=== PATIENT | female | born 1975 | race Caucasian/White ===

== ENCOUNTER → 2016-12-17 | Emergency (ER) | payer SELFPAY ==
[2016-12-17 16:16] VITALS: BP 106/61; PULSE 95; TEMP 98.4; BMI 21.6
== END | disposition left against medical advice (07) ==
LOC: JER 16:03
DX: Z53.21 Procedure and treatment not carried out due to patient leaving prior to being seen by health care provider (principal)
CPT/HCPCS: 99281-25

== ENCOUNTER 2017-05-01 05:17 | Emergency (ER) | payer SELFPAY ==
--- NOTE | 2017-05-01 05:28 | PDOC ---
History of Present Illness - General Stated Complaint: ABDOMINAL PAIN History Source: Patient - History of Present Illness Travel History: No Initial Comments: 05/01/17 05:48 41-year-old female without any medical problems presents to the emergency department complaining of 5/10 burning, nonradiating intermittent discomfort 2 weeks and is associated with a sour taste in her mouth but denies nausea/ vomiting, fever/chills, chest pain, shortness of breath, flank pains, urinary symptoms. Patient states she's had similar symptoms in the past without a diagnosis. There are no alleviating or exacerbating factors. Timing/Duration: reports: intermittent Abdominal Pain Onset Location: reports: epigastric Past History - Past Medical History Allergies/Adverse Reactions: Allergies Allergy/AdvReac Type Severity Reaction Status Date / Time No Known Allergies Allergy Verified 12/17/16 16:13 Home Medications: Ambulatory Orders Dicyclomine HCl [Bentyl] 20 mg PO TID #20 tablet 06/12/15 Famotidine [Pepcid] 40 mg PO DAILY #30 tablet 06/12/15 - Surgical History Appendectomy: Yes Cholecystectomy: Yes - Suicide/Smoking/Psychosocial Hx Smoking History: Never smoked Have you smoked in the past 12 months: No Hx Alcohol Use: No Drug/Substance Use Hx: No Substance Use Type: None Review of Systems - Review of Systems Able to Perform ROS?: Yes Comments:: 05/01/17 05:48 CONSTITUTIONAL: Absent: fever, chills, diaphoresis, generalized weakness, malaise, loss of appetite HEENT: Absent: rhinorrhea, nasal congestion, throat pain, throat swelling, difficulty swallowing, mouth swelling, ear pain, eye pain, visual Changes CARDIOVASCULAR: Absent: chest pain, loss of consciousness, palpitations, irregular heart rate, peripheral edema RESPIRATORY: Absent: cough, shortness of breath, dyspnea with exertion, orthopnea, wheezing, stridor, hemoptysis GASTROINTESTINAL: +epigastric pain Absent: abdominal distension, nausea, vomiting, diarrhea, constipation, melena , hematochezia GENITOURINARY: Absent: dysuria, frequency, urgency, hesitancy, hematuria, flank pain, genital pain MUSCULOSKELETAL: Absent: myalgia, arthralgia, joint swelling SKIN: Absent: rash, itching, pallor HEMATOLOGIC/IMMUNOLOGIC: Absent: easy bleeding, easy bruising, lymphadenopathy, frequent infections ENDOCRINE: Absent: unexplained weight gain, unexplained weight loss, heat intolerance, cold intolerance NEUROLOGIC: Absent: headache, focal weakness or paresthesias, dizziness, unsteady gait, seizure, mental status changes, bladder or bowel incontinence PSYCHIATRIC: Absent: anxiety, depression, suicidal or homicidal ideation, hallucinations. Is the patient limited Samoan proficient: No *Physical Exam - Physical Exam Comments: 05/01/17 05:48 GENERAL: Well developed, well nourished. Awake and alert. No acute distress. HEENT: Normocephalic, atraumatic. PERRLA, EOMI. No conjunctival pallor. Sclera are non- icteric. Moist mucous membranes. Oropharynx is clear. NECK: Supple. Full ROM. No JVD. Carotid pulses 2+ and symmetric, without bruits. No thyromegaly. No lymphadenopathy. CARDIOVASCULAR: Regular rate and rhythm. No murmurs, rubs, or gallops. Distal pulses are 2+ and symmetric. PULMONARY: No evidence of respiratory distress. Lungs clear to auscultation bilaterally. No wheezing, rales or rhonchi. ABDOMINAL: Soft. Non-tender. Non-distended. No rebound or guarding. No organomegaly. Normoactive bowel sounds. MUSCULOSKELETAL Normal range of motion at all joints. No bony deformities or tenderness. No CVA tenderness. EXTREMITIES: No cyanosis. No clubbing. No edema. No calf tenderness. SKIN: Warm and dry. Normal capillary refill. No rashes. No jaundice. NEUROLOGICAL: Alert, awake, appropriate. Cranial nerves 2-12 intact. No deficits to light touch and temperature in face, upper extremities and lower extremities. No motor deficits in the in face, upper extremities and lower extremities. Normoreflexic in the upper and lower extremities. Normal speech. Toes are down- going bilaterally. Gait is normal without ataxia. PSYCHIATRIC: Cooperative. Good eye contact. Appropriate mood and affect.
[2017-05-01] MEDS ORDERED: FAMOTIDINE 20 MG/50 ML IVPB 50 ML IVPB ONE ×2 (05:29→06:24)
[2017-05-01] MEDS ORDERED: MAG HYDROX/AL HYDROX/SIMETH 30 ML UNIT-DOSE CUP PO ONE (05:29)
[2017-05-01] MEDS ORDERED: SODIUM CHLORIDE 1,000 ML IV SCH (05:30)
[2017-05-01 05:43] LABS: URINE APPEARANCE CLEAR; URINE BILIRUBIN NEGATIVE (NEGATIVE); URINE BLOOD NEGATIVE (NEGATIVE); URINE COLOR LTYELLOW; URINE GLUCOSE (UA) NEGATIVE (NEGATIVE); URINE KETONE NEGATIVE (NEGATIVE); URINE NITRITE NEGATIVE (NEGATIVE); URINE PROTEIN NEGATIVE (NEGATIVE); URINE UROBILINOGEN NEGATIVE mg/dL (0.2-1.0)
[2017-05-01] MEDS ORDERED: PANTOPRAZOLE 40 MG TABLET (FP) PO ONE (06:09)
[2017-05-01 06:11] VITALS: BMI 19.8
[2017-05-01] MEDS ORDERED: MAG HYDROX/AL HYDROX/SIMETH 30 ML UNIT-DOSE CUP ONE (06:12)
[2017-05-01] MEDS ORDERED: PANTOPRAZOLE 40 MG TABLET (FP) ONE (06:12)
[2017-05-01 06:27] LABS: BASOPHIL 0.8 % (0-2.0); EOSINOPHIL 3.9 % (0-4.5); MCH 30.5 pg (25.7-33.7); MCHC 34.8 g/dl (32.0-36.0); MEAN CELL VOLUME 87.6 fl (80-96); MEAN PLT VOLUME 10.2 fl (7.5-11.1); NEUTROPHILS 59.6 % (42.8-82.8); PLATELET COUNT 169 K/MM3 (134-434); RDW 13.1 % (11.6-15.6); WHITE BLOOD COUNT 6.8 K/mm3 (4.0-10.0)
[2017-05-01] MEDS ORDERED: SODIUM CHLORIDE 0.9% 1000 ML INFUS.BAG IV STA (06:37)
[2017-05-01 07:27] LABS: ALBUMIN 3.8 g/dl (3.4-5.0); ALK PHOS 77 U/L (45-117); ANION GAP 8 (8-16); BILIRUBIN,TOTAL 0.4 mg/dL (0.2-1.0); CALCIUM 8.7 mg/dL (8.5-10.1); CO2 25 mmol/L (21-32); CREATININE 0.6 mg/dL (0.55-1.02); GLUCOSE,RANDOM 94 mg/dL (74-106); SGOT/AST 22 U/L (15-37); SGPT/ALT 26 U/L (12-78); TOT PROT 7.7 g/dl (6.4-8.2)
--- NOTE | 2017-05-01 08:51 | PDOC ---
*Physical Exam - Vital Signs Last Vital Signs Temp Pulse Resp BP Pulse Ox 98.4 F 75 16 102/63 100 05/01/17 06:07 05/01/17 06:07 05/01/17 06:07 05/01/17 06:07 05/01/17 06:07 ED Treatment Course - LABORATORY CBC & Chemistry Diagram: 05/01/17 06:18 05/01/17 06:39 - ADDITIONAL ORDERS Additional order review: Laboratory Results 05/01/17 05/01/17 05/01/17 06:39 06:18 05:28 Sodium 139 Cancelled Potassium 4.0 Cancelled Chloride 106 Cancelled Carbon Dioxide 25 Cancelled Anion Gap 8 Cancelled BUN 13 Cancelled Creatinine 0.6 D Cancelled Creat Clearance w eGFR > 60 Cancelled Random Glucose 94 Cancelled Calcium 8.7 Cancelled Total Bilirubin 0.4 Cancelled AST 22 D Cancelled ALT 26 D Cancelled Alkaline Phosphatase 77 Cancelled Total Protein 7.7 Cancelled Albumin 3.8 Cancelled Total Amylase Cancelled Lipase Cancelled Urine Color Ltyellow Urine Appearance Clear Urine pH 5.0 Urine Protein Negative Urine Glucose (UA) Negative Urine Ketones Negative Urine Blood Negative Urine Nitrite Negative Urine Bilirubin Negative Urine Urobilinogen Negative Urine HCG, Qual Negative 05/01/17 06:18 RBC 4.26 MCV 87.6 MCHC 34.8 RDW 13.1 MPV 10.2 Neutrophils % 59.6 Lymphocytes % 29.1 Monocytes % 6.6 Eosinophils % 3.9 Basophils % 0.8 - Medications Given in the ED: ED Medications Discontinued Medications Generic Name Dose Route Start Last Admin Trade Name Freq PRN Reason Stop Dose Admin Al Hydroxide/Mg Hydroxide 30 ml 05/01/17 05:29 05/01/17 06:35 Mylanta Oral Suspension - PO 05/01/17 05:30 30 ml ONCE ONE Administration Famotidine/Sodium Chloride 50 mls @ 100 mls/hr 05/01/17 05:29 05/01/17 06:11 Pepcid 20 Mg Premixed Ivpb - IVPB 05/01/17 05:58 Not Given ONCE ONE Pantoprazole Sodium 40 mg 05/01/17 06:09 05/01/17 06:37 Protonix - PO 05/01/17 06:10 Not Given ONCE ONE Sodium Chloride 1,000 ml 05/01/17 06:37 05/01/17 06:41 Normal Saline - IV 05/01/17 06:38 1,000 ml NOW STA Administration Medical Decision Making - Medical Decision Making 05/01/17 08:05 Patient received in sign out from JONATHAN Jasso. Patient with complaints of upper abdominal pain that radiates to her throat. Patient had labs and was given Maalox and IV Protonix which she states did alleviate her discomfort. Patient was also given Pepcid. Patient states has been seen by Dr. Ramos the past a few years ago and had a colonoscopy but not a endoscopy. Patient recommended to follow-up with him. Rx given for Protonix along with hemorrhoidal cream which she states has long-standing history of hemorrhoids *DC/Admit/Observation/Transfer Diagnosis at time of Disposition: Dyspepsia - Discharge Dispostion Disposition: HOME Condition at time of disposition: Improved - Prescriptions Prescriptions: Phenylephrine/Shk Lv/Mo/Pet,Wh [Hemorrhoidal Ointment] 1 applic RC PRN PRN #1 tube PRN Reason: Hemorrhoids Pantoprazole Sodium [Protonix] 40 mg PO DAILY #30 tablet. - Referrals Referrals: Roni Ramos MD [Staff Physician] - - Patient Instructions Printed Discharge Instructions: DI for Gastroesophageal Reflux Disease (GERD) Additional Instructions: Please follow up with Rachel Akers. Please take Protonix daily starting tomorrow. Please read over information about GERD
[2017-05-01 09:07] VITALS: BP 108/66; PULSE 68; TEMP 98.2
[2017-05-01 11:25] LABS: URINE LEUK ESTERASE Negative (NEGATIVE)
== END 2017-05-01 09:07 | disposition home or self-care (01) ==
LOC: JER 05:17
PROC: 3E033GC Introduction of Other Therapeutic Substance into Peripheral Vein, Percutaneous Approach (ICD-10-PCS; principal; 2017-05-01)
PROC: 3E0337Z Introduction of Electrolytic and Water Balance Substance into Peripheral Vein, Percutaneous Approach (ICD-10-PCS; 2017-05-01)
DX: R10.13 Epigastric pain (principal)
CPT/HCPCS: 80053; 81003; 84703; 99283-25